=== PATIENT | female | born 1985 | race Caucasian/White ===

== ENCOUNTER 2020-04-16 19:15 | Emergency (ER) | payer MEDICAID ==
[~2020-04-16] VITALS: Ht 172.7 cm; Wt 99.6 kg
[2020-04-16 19:19] VITALS: BP 147/99
--- NOTE | 2020-04-16 19:31 | NUR ---
PT PICKED UP A CASE OF WATER YESTERDAY AND FELT A POP IN BELLY, PT NOW HAS A "BULGE AT THE BELLY BUTTON" HERNIA NOTED TO UMBILICUS. NO HX OF SAME. PAIN RATED AT 6/10 DESCRIBED DEEP BURNING HAS FULL SERVING OF STIR LYLE 2 HOURS AGO (6PM)
[2020-04-16] MEDS ORDERED: KETOROLAC 30 MG/1 ML IM ONE (20:00)
[2020-04-16] MEDS ORDERED: OLANZAPINE 10 MG TABLET PO SCH (20:00)
[2020-04-16] MEDS ORDERED: KETOROLAC 30 MG/1 ML ONE (20:01)
[2020-04-16] MEDS ORDERED: OLANZAPINE 10 MG TABLET ONE (20:01)
== END 2020-04-16 20:13 | disposition home or self-care (01) ==
LOC: ED 20:01
DX: K42.9 Umbilical hernia without obstruction or gangrene (principal); R10.30 Lower abdominal pain, unspecified; F17.200 Nicotine dependence, unspecified, uncomplicated
CPT/HCPCS: 96372; 99283; J1885

== ENCOUNTER 2020-09-05 12:50 | Emergency (ER) | payer MEDICAID ==
[~2020-09-05] VITALS: Ht 172.7 cm; Wt 97.0 kg
--- NOTE | 2020-09-05 13:03 | NUR ---
system safety manager: EKG done in triage
--- NOTE | 2020-09-05 13:12 | NUR ---
Pt is here d/t BP 177/ 117 at home, called tongue trimmer police liaison and they recommended taking additional BP med cardizem which she did 2 hours ago. Addendum: 09/05/20 at 1319 by [email or web address] Pt hooked to monitor, pt is htn and tachycardic. NADN, alert and oriented, reg/unlabored breathing. denies needing anything at this time. call light and belonging w/in reach.
--- NOTE | 2020-09-05 13:30 | NUR ---
Lonnie garcias in [facility] - 09/05/20 at 1404 by WILFRIDO BEDSIDE
--- NOTE | 2020-09-05 14:04 | NUR ---
PT AT BEDSIDE, PT WAS WONDERING WHAT POC WAS. LAB PRESENT TO DRAW LABS.
[2020-09-05 14:18] LABS: BASOPHILS % (AUTO) 1 % (0-1); EOSINOPHILS % (AUTO) 2 % (1-7); LYMPHOCYTES % (AUTO) 27 % (22-44); MEAN CORPUSCULAR HEMOGLOBIN 30.7 pg (27.0-34.8); MEAN PLATELET VOLUME 9.1 fL (7.4-10.4); MONOCYTES % (AUTO) 7 % (2-9); NEUTROPHILS % (AUTO) 64 % (42-75); PLATELET COUNT 265 x10^3/uL (130-400); RED BLOOD COUNT 4.86 x10^6/uL (3.82-5.3); RED CELL DISTRIBUTION WIDTH 13.6 % (9.6-15.2)
--- NOTE | 2020-09-05 14:20 | NUR ---
ROUNDED ON PT, SHE REQUESTED SOMETHING TO RELAX HER. WILL NOTIFY MD OF REQUEST. PT STILL HTN, OTHER VSS WNL. DENIES OTHER NEEDS. REG/UNLABORED BREATHING. CALL LIGHT AND BELONGING W/IN REACH.
--- NOTE | 2020-09-05 14:25 | NUR ---
MD NOTIFIED OF PT REQUEST, MEDS ORDERED AND PT NEEDS IV, BREAK RN WILL HELP COMPLETE THESE TASK.
[2020-09-05] MEDS ORDERED: LORazepam 2 MG/ML, 1ML IVPush ONE (14:30)
[2020-09-05] MEDS ORDERED: KETOROLAC 30 MG/1 ML IVPush ONE (14:30)
[2020-09-05 14:31] LABS: ALANINE AMINOTRANSFERASE 26 U/L (12-78); ANION GAP 6 mmol/L (5-15); CALCIUM 9.2 mg/dL (8.5-10.1); CHLORIDE 113 mmol/L (98-107)
[2020-09-05 14:36] LABS: ALKALINE PHOSPHATASE 85 U/L (45-117); BILIRUBIN,TOTAL 0.5 mg/dL (0.2-1.0); TOTAL PROTEIN 7.9 g/dL (6.4-8.2); TROPONIN I < 0.015 ng/mL (0.000-0.045)
[2020-09-05] MEDS ORDERED: LORazepam 2 MG/ML, 1ML ONE (14:39)
[2020-09-05] MEDS ORDERED: KETOROLAC 30 MG/1 ML ONE (14:39)
--- NOTE | 2020-09-05 15:16 | NUR ---
PT UP TO BATHROOM AND BACK W/O INCIDENT. REHOOKED PT UP TO MONITORS.
[2020-09-05 16:28] VITALS: BP 132/100
--- NOTE | 2020-09-05 16:31 | NUR ---
PT ASKING FOR UPDATE ON POC, WHICH I TOLD HER WE ARE STILL WAITING FOR MD FOR ADDITIONAL ORDERS. PT "WANTS A BREAK AND GO OUTSIDE." MD NOTIFIED PT IS REQUESTING HER.
[2020-09-05] MEDS ORDERED: POTASSIUM CHLORIDE 20 MEQ TAB.ER.PRT PO ONE (17:30)
--- NOTE | 2020-09-05 17:39 | NUR ---
PT HAD LEFT PRIOR TO RECEIVING PAPERWORK, THEN RETURNED. REVIEWED PAPERWORK W/ PT. AMBULATED W/ STEADY GAIT.
== END 2020-09-05 15:00 | disposition home or self-care (01) ==
LOC: ED 14:19
DX: R07.2 Precordial pain (principal); R00.2 Palpitations; I10 Essential (primary) hypertension; F17.200 Nicotine dependence, unspecified, uncomplicated
CPT/HCPCS: 36415; 71045; 80053; 84484; 85025; 93005; 96374; 96375; 99285; J1885; J2060

== ENCOUNTER 2020-09-06 14:31 | Emergency (ER) | payer MEDICAID ==
[~2020-09-06] VITALS: Ht 172.7 cm; Wt 97.2 kg
--- NOTE | 2020-09-06 16:20 | NUR ---
PT WALKED BACK FROM TRIAGE WITH CHIEF COMPLAINT OF HIGH BP, PT STATES SHE WAS EVALUATED HERE YESTERDAY FOR SAME.
--- NOTE | 2020-09-06 16:41 | NUR ---
PT STATES WAS HERE YESTERDAY FOR SAME. PT RESTING ON [employer] BOTH RAILS UP X2 VSS. CALL REMOTE WITHIN REACH. MARCELINO.
--- NOTE | 2020-09-06 16:53 | NUR ---
Note víctorminna in EDM - 09/06/20 at 1727 by [email or web address] PT BACK FROM [address] PER PATIENT TO REMAIN IN WHEELCHAIR. HOOKED BACK UP TO VITALS AND WILL CONTINUE TO MONITOR. VSS. CALL REMOTE WITHIN REACH. AT BEDSIDE.
--- NOTE | 2020-09-06 17:20 | NUR ---
PROVIDER AT BEDSIDE TO DO EVALUATION
--- NOTE | 2020-09-06 18:39 | NUR ---
DINESH RUIZ AT BEDSIDE FOR EVAL
--- NOTE | 2020-09-06 18:45 | NUR ---
PT RESTING IN [facility], RAILS UP X2. VSS. CALL REMOTE WITHIN REACH.
--- NOTE | 2020-09-06 18:48 | NUR ---
REPORT FROM SHERRY RODRIGUEZ.
[2020-09-06] MEDS ORDERED: ENALAPRILAT 1.25 MG/ML, 1ML ONE (19:25)
[2020-09-06] MEDS ORDERED: ENALAPRILAT 1.25 MG/ML, 2ML IV ONE (19:30)
[2020-09-06 20:12] VITALS: BP 144/109
[2020-09-06] MEDS ORDERED: ACETAMINOPHEN 500 MG TABLET ONE (20:42)
--- NOTE | 2020-09-06 21:39 | NUR ---
pt refusing chest xray
--- NOTE | 2020-09-06 21:43 | NUR ---
PT WISHES TO BE DISCHARGED. UPDATED DR. RUIZ.
[2020-09-06] MEDS ORDERED: METOPROLOL 1 MG/ML, 5ML IVPush PRN (22:00)
[2020-09-06] MEDS ORDERED: ASPIRIN 81 MG TABLET CHEW PO ONE (22:00)
[2020-09-06] MEDS ORDERED: NITROGLYCERIN SINGLE TAB 0.4 MG SL PRN (22:00)
== END 2020-09-06 22:39 | disposition home or self-care (01) ==
LOC: ED 16:57 → EDIP 21:33 → UNDOADMIN 21:33
DX: I10 Essential (primary) hypertension (principal); R07.2 Precordial pain; F17.210 Nicotine dependence, cigarettes, uncomplicated; R00.2 Palpitations
CPT/HCPCS: 93005; 99285; 99406

== ENCOUNTER 2020-11-17 20:05 | Emergency (ER) | payer MEDICAID, OTHER ==
[~2020-11-17] VITALS: Ht 172.7 cm; Wt 88.7 kg
[2020-11-17 20:20] VITALS: BP 168/112
--- NOTE | 2020-11-17 20:40 | NUR ---
NIL X 1
[2020-11-17] MEDS ORDERED: KETOROLAC 30 MG/1 ML IM ONE (21:30)
[2020-11-17] MEDS ORDERED: CYCLOBENZAPRINE 10 MG TABLET PO ONE (21:30)
[2020-11-17] MEDS ORDERED: KETOROLAC 60 MG/2 ML ONE (21:46)
[2020-11-17] MEDS ORDERED: CYCLOBENZAPRINE 10 MG TABLET ONE (21:46)
--- NOTE | 2020-11-17 21:54 | NUR ---
TASK RN: PT MEDICATED PER EMAR. DC EDUCATION PROVIDED PT DEMONSTRATES UNDERSTANDING. PT AMBULATED STEAIDLY TO DC W RN. FRIEND TO TRANSPORT PT HOME
== END 2020-11-17 21:56 | disposition home or self-care (01) ==
LOC: ED 21:50
DX: S39.012A Strain of muscle, fascia and tendon of lower back, initial encounter (principal); M54.6 Pain in thoracic spine; I10 Essential (primary) hypertension; F17.200 Nicotine dependence, unspecified, uncomplicated; V49.59XA Passenger injured in collision with other motor vehicles in traffic accident, initial encounter; Y93.89 Activity, other specified; Y92.410 Unspecified street and highway as the place of occurrence of the external cause; Y99.8 Other external cause status
CPT/HCPCS: 71046; 72110; 96372; 99284; J1885